=== PATIENT | female | born 1965 | race African-American/Black ===

== ENCOUNTER 2021-01-05 18:19 | Inpatient (IN) | payer SELFPAY ==
[2021-01-05] MEDS ORDERED: Acetaminophen 650 MG Suppository PR PRN (19:41)
[2021-01-05] MEDS ORDERED: Ondansetron PF 4 MG/2 ML Vial IVP PRN (19:41)
[2021-01-05] MEDS ORDERED: Ondansetron ODT 4 MG TAB PO PRN (19:41)
[2021-01-05] MEDS ORDERED: Acetaminophen 325 MG TAB PO PRN (19:41)
[2021-01-05] MEDS: Heparin 5,000 UNITS/ML VIAL SC SCH (21:00)
[2021-01-06 02:52] VITALS: BMI 33.1
[2021-01-06 04:04] LABS: Bacteria/HPF 3+ HPF (None Seen); Bilirubin Negative (Negative); Blood, Urine Negative (Negative); Clarity Clear (Clear); Glucose, Urine (Dipstick) Normal (Negative); Ketone, Urine Negative (Negative); Leukocyte Negative Leu/uL (Negative); Nitrite 1+ (Negative); Protein, Urine (Dipstick) Negative (Neg-Trace); RBC/HPF 0-3 HPF (0-3); Specific Gravity, Urine 1.012 (1.002-1.036); Squamous Epithelial 0-3 HPF (0-3); Urobilinogen Normal mg/dL (Less than 2); WBC/HPF 0-3 HPF (0-3); pH, Urine 5.5 (5.0-9.0)
[2021-01-06 04:06] LABS: Potassium, Urine 17.1 mmol/L
[2021-01-06 04:13] LABS: Urine Culture Reflex Yes Yes
[2021-01-06 05:52] LABS: Hemoglobin 12.1 g/dL (12.0-16.0); Lymphocytes 37 % (21-51); MDiff Complete? YES; Mean Corpuscular HGB CONC 35.3 g/dL (32.0-36.0); Mean Corpuscular Hemoglobin 32.8 pg (27.0-31.0); Mean Corpuscular Volume 92.9 fL (78.0-98.0); Mean Platelet Volume 8.6 fL (7.4-10.4); Monocytes 13 % (0-10); Neutrophil 48 % (42-75); Platelet Count 160 thou/uL (130-400); RBC Distribution Width 12.9 % (11.5-14.5); Reactive Lymphocytes 2 % (0-10); Red Blood Cell (RBC) Count 3.67 mill/uL (4.20-5.40); White Blood Cell (WBC) Count 5.9 thou/uL (4.8-10.8)
[2021-01-06] MEDS: Furosemide 40 MG/4 ML VIAL SLOW IVP SCH ×2 (06:18→15:08)
[2021-01-06] MEDS: Heparin 5,000 UNITS/ML VIAL SC SCH ×2 (08:24→20:09)
[2021-01-06] MEDS ORDERED: Aspirin Chewable 81 MG TAB PO SCH (09:00)
[2021-01-06] MEDS ORDERED: Albuterol Sulfate 2.5 mg/3 ml Neb NEB PRN (09:39)
[2021-01-06 11:35] LABS: SARS-CoV-2 PCR NAA for Saliva Not Detected (NotDetected)
[2021-01-06] MEDS ORDERED: hydrALAZINE 20 MG/ML VIAL SLOW IVP PRN (15:42)
[2021-01-06] MEDS: Carvedilol 6.25 MG TAB PO SCH (20:08)
[2021-01-07 05:54] LABS: Anion Gap 12 mmol/L (10-20); BUN (Urea Nitrogen) 17 mg/dL (9.8-20.1); Calc. Creatinine Clearance 71 mL/min (70-130); Calcium 8.8 mg/dL (7.8-10.44); Carbon Dioxide 30 mmol/L (22-29); Chloride 102 mmol/L (98-107); Glucose 92 mg/dL (70-105); Sodium 141 mmol/L (136-145)
[2021-01-07 05:59] LABS: Troponin I 0.034 ng/mL (< 0.028)
[2021-01-07 06:18] LABS: Eosinophils 1 % (0-10); Hemoglobin 12.9 g/dL (12.0-16.0); Lymphocytes 29 % (21-51); MDiff Complete? YES; Mean Corpuscular HGB CONC 34.2 g/dL (32.0-36.0); Mean Corpuscular Hemoglobin 31.3 pg (27.0-31.0); Mean Corpuscular Volume 91.5 fL (78.0-98.0); Mean Platelet Volume 8.4 fL (7.4-10.4); Monocytes 8 % (0-10); Neutrophil 62 % (42-75); Platelet Count 169 thou/uL (130-400); Platelet Morphology Comment Appears Adequate; Red Blood Cell (RBC) Count 4.13 mill/uL (4.20-5.40); White Blood Cell (WBC) Count 6.5 thou/uL (4.8-10.8)
[2021-01-07] MEDS: Furosemide 40 MG/4 ML VIAL SLOW IVP SCH ×2 (06:43→15:19)
[2021-01-07] MEDS ORDERED: Potassium Chloride 20 MEQ TAB PO SCH (07:00)
[2021-01-07] MEDS ORDERED: Electrolyte Replacement Protocol 1 EACH FS SCH (07:00)
[2021-01-07] MEDS: Heparin 5,000 UNITS/ML VIAL SC SCH ×2 (08:21→21:29)
[2021-01-07] MEDS: Carvedilol 6.25 MG TAB PO SCH ×2 (08:21→21:29)
[2021-01-07] MEDS: Aspirin 81 mg Enteric Coated Tablet PO SCH (08:21)
[2021-01-07] MEDS ORDERED: Magnesium 2 GM/50 ML 2 GM in Premix Bag 1 BAG IVPB SCH (08:30)
[2021-01-07] MEDS ORDERED: Lisinopril/Hydrochlorothiazide 20 mg/12.5 mg Tablet PO SCH (09:00)
[2021-01-07 09:39] LABS: Troponin I 0.015 ng/mL (< 0.028)
[2021-01-07] MEDS ORDERED: cefTRIAXone\\ROCEPHIN 2 GM in Sodium Chloride 0.9% 100 ML IVPB SCH (17:00)
[2021-01-08 05:00] LABS: Cardiac Risk 9.2 (Less than 4.5)
[2021-01-08] MEDS: Ciprofloxacin 500 MG TAB PO SCH ×2 (05:55→20:08)
[2021-01-08 06:33] LABS: ALT (SGPT) 15 U/L (8-55); AST (SGOT) 16 U/L (5-34); Albumin 3.3 g/dL (3.5-5.0); Alkaline Phosphatase 169 U/L (40-110); Anion Gap 14 mmol/L (10-20); BUN (Urea Nitrogen) 20 mg/dL (9.8-20.1); Bilirubin, Total 1.4 mg/dL (0.2-1.2); Calc. Creatinine Clearance 59 mL/min (70-130); Calcium 9.1 mg/dL (7.8-10.44); Carbon Dioxide 30 mmol/L (22-29); Chloride 98 mmol/L (98-107); Globulin 4.1 g/dL (2.4-3.5); Glucose 107 mg/dL (70-105); Potassium 3.3 mmol/L (3.5-5.1); Protein, Total 7.4 g/dL (6.0-8.3); Sodium 139 mmol/L (136-145)
[2021-01-08] MEDS ORDERED: Potassium Chloride 20 MEQ TAB PO SCH (07:15)
[2021-01-08] MEDS: Furosemide 40 MG/4 ML VIAL SLOW IVP SCH ×2 (07:28→14:35)
[2021-01-08] MEDS ORDERED: Dextrose 5% in Water 1,000 ML IV PRN (08:33)
[2021-01-08] MEDS ORDERED: HumaLOG 300 UNITS/3 ML VIAL SC PRN (08:33)
[2021-01-08] MEDS ORDERED: Dextrose 50% Abboject 50 ML SYRINGE SLOW IVP PRN (08:33)
[2021-01-08] MEDS ORDERED: Sodium Chloride 0.65% Nasal 44 ML BOT EA NARE PRN (08:36)
[2021-01-08] MEDS ORDERED: Senokot S 8.6-50 MG TAB PO PRN (08:36)
[2021-01-08] MEDS ORDERED: Calcium Carbonate 500 MG ChewTAB PO PRN (08:36)
[2021-01-08] MEDS ORDERED: Bisacodyl 5 MG TAB PO PRN (08:36)
[2021-01-08] MEDS ORDERED: GUAIFENESIN SF SOLN 200 MG/10 ML UDCUP PO PRN (08:36)
[2021-01-08] MEDS ORDERED: Loperamide HCl 2 MG CAP PO PRN (08:36)
[2021-01-08] MEDS ORDERED: Zolpidem Tartrate 5 MG TAB PO PRN (08:36)
[2021-01-08] MEDS ORDERED: Cepastat Lozenges 1 LOZ PO PRN (08:36)
[2021-01-08] MEDS ORDERED: Loratadine 10 MG TAB PO PRN (08:36)
[2021-01-08] MEDS ORDERED: Lisinopril 20 MG TAB PO SCH (09:00)
[2021-01-08] MEDS ORDERED: Carvedilol 6.25 MG TAB PO SCH (09:00)
[2021-01-08] MEDS: Aspirin 81 mg Enteric Coated Tablet PO SCH (09:09)
[2021-01-08] MEDS: Heparin 5,000 UNITS/ML VIAL SC SCH ×2 (09:10→20:09)
[2021-01-08] MEDS: Carvedilol 6.25 MG TAB PO SCH (16:15)
[2021-01-08] MEDS: Atorvastatin Calcium 40 MG TAB PO SCH (20:09)
[2021-01-08] MEDS ORDERED: Atorvastatin Calcium 20 MG TAB PO SCH (21:00)
[2021-01-09 05:25] LABS: Hemoglobin 15.3 g/dL (12.0-16.0); Mean Corpuscular HGB CONC 33.3 g/dL (32.0-36.0); Mean Corpuscular Hemoglobin 31.1 pg (27.0-31.0); Mean Corpuscular Volume 93.4 fL (78.0-98.0); Mean Platelet Volume 8.4 fL (7.4-10.4); Platelet Count 216 thou/uL (130-400); RBC Distribution Width 13.2 % (11.5-14.5); Red Blood Cell (RBC) Count 4.93 mill/uL (4.20-5.40); White Blood Cell (WBC) Count 6.6 thou/uL (4.8-10.8)
[2021-01-09 05:36] LABS: ALT (SGPT) 15 U/L (8-55); AST (SGOT) 15 U/L (5-34); Albumin 3.3 g/dL (3.5-5.0); Alkaline Phosphatase 157 U/L (40-110); Anion Gap 14 mmol/L (10-20); BUN (Urea Nitrogen) 23 mg/dL (9.8-20.1); Bilirubin, Total 1.2 mg/dL (0.2-1.2); Calc. Creatinine Clearance 57 mL/min (70-130); Calcium 9.2 mg/dL (7.8-10.44); Carbon Dioxide 29 mmol/L (22-29); Chloride 99 mmol/L (98-107); Globulin 4.1 g/dL (2.4-3.5); Glucose 122 mg/dL (70-105); Magnesium 2.2 mg/dL (1.6-2.6); Potassium 3.3 mmol/L (3.5-5.1); Protein, Total 7.4 g/dL (6.0-8.3); Sodium 139 mmol/L (136-145)
[2021-01-09 05:40] LABS: Band 1 % (5-11); Eosinophils 2 % (0-10); Lymphocytes 43 % (21-51); MDiff Complete? YES; Monocytes 8 % (0-10); Neutrophil 45 % (42-75); Platelet Morphology Comment Appears Adequate; Reactive Lymphocytes 1 % (0-10)
[2021-01-09] MEDS: Furosemide 40 MG/4 ML VIAL SLOW IVP SCH ×2 (07:08→13:55)
[2021-01-09] MEDS: Ciprofloxacin 500 MG TAB PO SCH ×2 (07:08→20:03)
[2021-01-09] MEDS ORDERED: Potassium Chloride 20 MEQ TAB PO SCH (08:15)
[2021-01-09] MEDS: Heparin 5,000 UNITS/ML VIAL SC SCH ×2 (08:53→20:03)
[2021-01-09] MEDS: Potassium Chloride 20 MEQ TAB PO SCH (09:04)
[2021-01-09] MEDS: Lisinopril 5 MG TAB PO SCH (09:05)
[2021-01-09] MEDS: Aspirin 81 mg Enteric Coated Tablet PO SCH (09:08)
[2021-01-09] MEDS: Carvedilol 6.25 MG TAB PO SCH (09:19)
[2021-01-09] MEDS: Carvedilol 3.125 MG TAB PO SCH (17:33)
[2021-01-09] MEDS: Atorvastatin Calcium 40 MG TAB PO SCH (20:03)
[2021-01-09] MEDS ORDERED: Communication Order-Pharmacy FS SCH (22:45)
[2021-01-10 05:14] LABS: Anion Gap 15 mmol/L (10-20); BUN (Urea Nitrogen) 24 mg/dL (9.8-20.1); Calc. Creatinine Clearance 61 mL/min (70-130); Calcium 9.4 mg/dL (7.8-10.44); Carbon Dioxide 27 mmol/L (22-29); Chloride 99 mmol/L (98-107); Glucose 113 mg/dL (70-105); Sodium 137 mmol/L (136-145)
[2021-01-10] MEDS: Ciprofloxacin 500 MG TAB PO SCH ×2 (05:27→20:22)
[2021-01-10] MEDS: Furosemide 40 MG/4 ML VIAL SLOW IVP SCH (05:28)
[2021-01-10] MEDS: Potassium Chloride 20 MEQ TAB PO SCH (08:45)
[2021-01-10] MEDS: Lisinopril 5 MG TAB PO SCH (08:45)
[2021-01-10] MEDS: Aspirin 81 mg Enteric Coated Tablet PO SCH (08:45)
[2021-01-10] MEDS: Carvedilol 3.125 MG TAB PO SCH ×2 (08:46→17:06)
[2021-01-10] MEDS: Heparin 5,000 UNITS/ML VIAL SC SCH ×2 (08:46→20:22)
[2021-01-10] MEDS: Atorvastatin Calcium 40 MG TAB PO SCH (20:22)
[2021-01-11] MEDS: Ciprofloxacin 500 MG TAB PO SCH ×2 (05:16→20:21)
[2021-01-11] MEDS: Potassium Chloride 20 MEQ TAB PO SCH (05:16)
[2021-01-11] MEDS: Aspirin 81 mg Enteric Coated Tablet PO SCH (05:17)
[2021-01-11] MEDS ORDERED: Iopamidol 370 76% 100 ML VIAL ONE (08:30)
[2021-01-11] MEDS: Lisinopril 5 MG TAB PO SCH (09:05)
[2021-01-11] MEDS: Carvedilol 3.125 MG TAB PO SCH ×2 (09:05→16:50)
[2021-01-11] MEDS: Heparin 5,000 UNITS/ML VIAL SC SCH ×2 (09:06→20:21)
[2021-01-11] MEDS: Furosemide 40 MG TAB PO SCH (10:52)
[2021-01-11] MEDS ORDERED: Lidocaine 1% (PF) 30 ML VIAL ONE ×2 (12:14→14:30)
[2021-01-11] MEDS ORDERED: Heparin 10,000 UNITS/ 10 ML VIAL ONE (12:17)
[2021-01-11] MEDS ORDERED: Verapamil 5 MG/2 ML VIAL ONE (12:17)
[2021-01-11] MEDS ORDERED: Nitroglycerin 50 MG/250 ML BOT 0 ML ONE (12:17)
[2021-01-11] MEDS ORDERED: Nitroglycerin 100MG/250ML BOT 250 ML ONE (12:18)
[2021-01-11] MEDS ORDERED: Nitroglycerin 0.4 MG TAB (25 Tab Bottle) SL PRN (13:22)
[2021-01-11] MEDS ORDERED: Acetaminophen/Codeine 30-300mg Tablet PO PRN ×2 (13:22)
[2021-01-11] MEDS ORDERED: Sodium Chloride 0.9% 200 ML IV PRN (13:22)
[2021-01-11] MEDS ORDERED: Gentamicin 80 MG/2 ML VIAL ONE (14:04)
[2021-01-11] MEDS ORDERED: CEFAZOLIN 1 GM VIAL ONE (14:04)
[2021-01-11] MEDS ORDERED: Midazolam HCl 2 mg/2 ml Vial ONE ×2 (14:46→15:13)
[2021-01-11] MEDS ORDERED: Fentanyl 100 MCG/2 ML VIAL ONE (14:46)
[2021-01-11] MEDS: HumaLOG 300 UNITS/3 ML VIAL SC PRN (19:19)
[2021-01-11] MEDS: Atorvastatin Calcium 40 MG TAB PO SCH (20:21)
[2021-01-12] MEDS: HYDROcodone/Acetaminophen 5/325 mg Tablet PO PRN ×2 (00:01→05:35)
[2021-01-12 05:14] LABS: Anion Gap 13 mmol/L (10-20); BUN (Urea Nitrogen) 21 mg/dL (9.8-20.1); Calc. Creatinine Clearance 69 mL/min (70-130); Calcium 9.2 mg/dL (7.8-10.44); Carbon Dioxide 25 mmol/L (22-29); Chloride 102 mmol/L (98-107); Glucose 122 mg/dL (70-105); Potassium 4.4 mmol/L (3.5-5.1); Sodium 136 mmol/L (136-145)
[2021-01-12] MEDS: Ciprofloxacin 500 MG TAB PO SCH (05:36)
[2021-01-12] MEDS: HumaLOG 300 UNITS/3 ML VIAL SC PRN (06:11)
[2021-01-12] MEDS: Potassium Chloride 20 MEQ TAB PO SCH (09:08)
[2021-01-12] MEDS: Carvedilol 3.125 MG TAB PO SCH (09:08)
[2021-01-12] MEDS: Furosemide 40 MG TAB PO SCH (09:08)
[2021-01-12] MEDS: Aspirin 81 mg Enteric Coated Tablet PO SCH (09:08)
[2021-01-12] MEDS: Lisinopril 5 MG TAB PO SCH (09:09)
[2021-01-12] MEDS: Heparin 5,000 UNITS/ML VIAL SC SCH (09:09)
[2021-01-12 11:37] VITALS: BP 133/92; TEMP 98.2
== END 2021-01-12 14:38 | disposition home or self-care (01) | DRG 222 ==
LOC: 2NO 18:19
PROVIDERS: ADMIT Internal Medicine; ATTEND Internal Medicine
PROC: 0JH608Z Insertion of Defibrillator Generator into Chest Subcutaneous Tissue and Fascia, Open Approach (ICD-10-PCS; principal; 2021-01-11)
PROC: 02HK3KZ Insertion of Defibrillator Lead into Right Ventricle, Percutaneous Approach (ICD-10-PCS; 2021-01-11)
PROC: 4A023N7 Measurement of Cardiac Sampling and Pressure, Left Heart, Percutaneous Approach (ICD-10-PCS; 2021-01-11)
PROC: B2111ZZ Fluoroscopy of Multiple Coronary Arteries using Low Osmolar Contrast (ICD-10-PCS; 2021-01-11)
PROC: B2151ZZ Fluoroscopy of Left Heart using Low Osmolar Contrast (ICD-10-PCS; 2021-01-11)
DX: I13.0 Hypertensive heart and chronic kidney disease with heart failure and stage 1 through stage 4 chronic kidney disease, or unspecified chronic kidney disease (principal); I50.23 Acute on chronic systolic (congestive) heart failure; N39.0 Urinary tract infection, site not specified; N17.9 Acute kidney failure, unspecified; I47.2 Ventricular tachycardia; E87.2 Acidosis; Z20.822 Contact with and (suspected) exposure to COVID-19; I42.8 Other cardiomyopathies; E87.6 Hypokalemia; I27.20 Pulmonary hypertension, unspecified; E78.5 Hyperlipidemia, unspecified; E66.9 Obesity, unspecified; I25.10 Atherosclerotic heart disease of native coronary artery without angina pectoris; I08.3 Combined rheumatic disorders of mitral, aortic and tricuspid valves; I16.0 Hypertensive urgency; E11.22 Type 2 diabetes mellitus with diabetic chronic kidney disease; E78.00 Pure hypercholesterolemia, unspecified; F32.9 Major depressive disorder, single episode, unspecified; I42.0 Dilated cardiomyopathy; N18.30 Chronic kidney disease, stage 3 unspecified; B96.20 Unspecified Escherichia coli [E. coli] as the cause of diseases classified elsewhere; Z68.31 Body mass index [BMI] 31.0-31.9, adult; Z90.49 Acquired absence of other specified parts of digestive tract; Z91.14 Patient's other noncompliance with medication regimen; Z79.82 Long term (current) use of aspirin; Z79.84 Long term (current) use of oral hypoglycemic drugs; Z79.899 Other long term (current) drug therapy
CPT/HCPCS: 33249; 36415; 36416; 71045; 76942; 80048; 80053; 80061; 81001; 82436; 83735; 83880; 83935; 84133; 84300; 84443; 84484; 85025; 87077; 87086; 87186; 93005; 93010; 93306; 93458; 93798; 99152; 99153; C1777; C1786; J0360; J0690; J0696; J1580; J1644; J1815; J1940; J2001; J2250; J3010; J3475; J3490; Q9967; U0003; U0005

== ENCOUNTER 2021-12-08 16:19 | Emergency (ER) | payer SELFPAY ==
[2021-12-08 17:15] LABS: #Lymphocytes 0.7 thou/uL (1.20-3.40); #Neutrophils 9.4 thou/uL (1.40-6.50); %Basophils 0.2 % (0.0-1.0); %Eosinophils 0.3 % (0.0-10.0); %Lymphocytes 6.4 % (21.0-51.0); %Monocytes 9.3 % (0.0-10.0); %Neutrophils 83.8 % (42.0-75.0); Hemoglobin 12.6 g/dL (12.0-16.0); Mean Corpuscular HGB CONC 35.1 g/dL (32.0-36.0); Mean Corpuscular Hemoglobin 31.3 pg (27.0-31.0); Mean Corpuscular Volume 89.1 fL (78.0-98.0); Mean Platelet Volume 8.3 fL (7.4-10.4); Platelet Count 204 thou/uL (130-400); RBC Distribution Width 11.7 % (11.5-14.5); Red Blood Cell (RBC) Count 4.04 mill/uL (4.20-5.40); White Blood Cell (WBC) Count 11.2 thou/uL (4.8-10.8)
[2021-12-08 17:39] LABS: ALT (SGPT) 39 U/L (8-55); AST (SGOT) 36 U/L (5-34); Albumin 4.4 g/dL (3.5-5.0); Alkaline Phosphatase 157 U/L (40-110); Anion Gap 18 mmol/L (10-20); BUN (Urea Nitrogen) 20 mg/dL (9.8-20.1); Bilirubin, Total 0.7 mg/dL (0.2-1.2); Calc. Creatinine Clearance 0 mL/min (70-130); Calcium 9.3 mg/dL (7.8-10.44); Carbon Dioxide 19 mmol/L (22-29); Chloride 105 mmol/L (98-107); Globulin 3.8 g/dL (2.4-3.5); Glucose 110 mg/dL (70-105); Potassium 3.9 mmol/L (3.5-5.1); Protein, Total 8.2 g/dL (6.0-8.3); Sodium 138 mmol/L (136-145)
[2021-12-08] MEDS ORDERED: Dexamethasone 10 MG/ML VIAL ONE (18:11)
[2021-12-08 19:09] LABS: SARS-CoV-2 NAA Rapid Test Not Detected (NotDetected)
[2021-12-08] MEDS ORDERED: Ketorolac Tromethamine 30 MG/ML VIAL ONE (19:27)
== END 2021-12-08 20:39 | disposition home or self-care (01) ==
LOC: ERS 16:19
DX: R50.9 Fever, unspecified (principal); M79.18 Myalgia, other site; I10 Essential (primary) hypertension; E11.9 Type 2 diabetes mellitus without complications; I25.10 Atherosclerotic heart disease of native coronary artery without angina pectoris; E78.5 Hyperlipidemia, unspecified; E78.00 Pure hypercholesterolemia, unspecified; Z79.84 Long term (current) use of oral hypoglycemic drugs; Z20.822 Contact with and (suspected) exposure to COVID-19; Z79.899 Other long term (current) drug therapy
CPT/HCPCS: 36415; 71045; 80053; 84484; 85025; 93005; 94760; 96374; 96375; J1100; J1885